=== PATIENT | male | born 1945 | race Two or more races ===

== ENCOUNTER 2023-09-18 09:37 | Day surgery (SDC) | payer OTHER ==
[~2023-09-18] VITALS: Ht 170.2 cm; Wt 66.7 kg
[~2023-09-18 09:37] MED LIST: ALBU0.0912 IH; ASPI81CT PO; ATOR20TA PO; DIPH25CA PO; DOCU100C82 PO; DORZ10SO22 OP; ISOS20TA13 PO; LEVO100P IV; LOSA50TA57 PO; METO25TA PO; MONT4CTB PO; PRAM0.5T4 PO; TAMS0.4C96 PO; WARF3TAB18 PO
[2023-09-18] MEDS ORDERED: fentaNYL citrate 0.05 MG/ML VIAL ONE (10:16)
[2023-09-18] MEDS ORDERED: LIDOCAINE 2% 100 MG/5 ML UJET TP ONE ×3 (10:16→13:00)
[2023-09-18] MEDS ORDERED: fentaNYL citrate 0.05 MG/ML VIAL IVP ONE (13:00)
== END 2023-09-18 12:00 | disposition home or self-care (01) ==
LOC: MDS 09:37 → MMU 09:39 → MDS 12:00
PROVIDERS: ATTEND Internal Medicine Gastroenterology
DX: Z12.11 Encounter for screening for malignant neoplasm of colon (principal); K63.5 Polyp of colon; K64.8 Other hemorrhoids; K57.30 Diverticulosis of large intestine without perforation or abscess without bleeding; Z86.010 Personal history of colon polyps; I10 Essential (primary) hypertension; E78.5 Hyperlipidemia, unspecified; Z90.49 Acquired absence of other specified parts of digestive tract; Z79.899 Other long term (current) drug therapy
CPT/HCPCS: 45385; 82948; J3010